=== PATIENT | male | born 1945 | race Caucasian/White ===

== ENCOUNTER 2018-01-08 08:59 | Emergency (ER) | payer OTHER ==
[~2018-01-08] VITALS: Ht 182.9 cm; Wt 94.0 kg
[2018-01-08 09:01] VITALS: BP 172/81; PULSE 50; RESP 16; TEMP 97.6; O2SAT 98
--- NOTE | 2018-01-08 09:40 | PD ---
HPI Chief Complaint: Head Injury Time Seen by Provider: 09:10 Travel History International Travel<30 days: No Contact w/Intl Traveler<30days: No Traveled to known affect area: No History of Present Illness HPI This is a 72 year old male who presents to the emergency department having had a fall 2 nights ago when he tripped over his dog and hit his head. He reports moderate severity pain in the back of his head and neck, constant, throbbing, with no associated loss of conciousness or vomiting. Given his pain has persisted he came to the emergency department. He takes a baby Aspirin every day and has a history of heart disease. He also drinks several alcoholic beverages every day. [facility] Past Medical History Narrative Medical Stents Coronary artery disease Drinks several alcoholic beverages a day Social History Alcohol Use: Yes (Drinks several alcoholic beverages a day) Tobacco Use: No Allergies-Medications (Allergen,Severity, Reaction): Coded Allergies: acetaminophen (Verified Allergy, Severe, VOMITING , 01/08/18) oxycodone (Verified Allergy, Severe, VOMITING , 01/08/18) Review of Systems Except as stated in HPI: all other systems reviewed are Neg Physical Exam Narrative GENERAL: SKIN: Abrasion over the right eye. HEAD: Atraumatic. Normocephalic. EYES: Pupils equal and round. No scleral icterus. No injection or drainage. ENT: No nasal bleeding or discharge. Mucous membranes pink and moist. NECK: Trachea midline. No JVD. CARDIOVASCULAR: Regular rate and rhythm. RESPIRATORY: No accessory muscle use. Clear to auscultation. Breath sounds equal bilaterally. GASTROINTESTINAL: Abdomen soft, non-tender, nondistended. MUSCULOSKELETAL: Extremities without clubbing, cyanosis, or edema. No obvious deformities. NEUROLOGICAL: Awake and alert. No obvious cranial nerve deficits. Moving all extremities. PSYCHIATRIC: Appropriate mood and affect; insight and judgment normal. Data Data Last Documented VS Vital Signs Date Time Temp Pulse Resp B/P (MAP) Pulse Ox O2 Delivery O2 Flow Rate FiO2 01/08/18 09:01 97.6 50 16 172/81 (111) [address] Brain W/O Iv Contrast(Rout) (01/08/18 ) Ct Cerv Spine W/O Contrast (01/08/18 ) MDM Medical Decision Making Medical Screen Exam Complete: Yes Emergency Medical Condition: Yes Interpretation(s) Afebrile, bradycardic, hypertensive CT head and cervical spine are reassuring Differential Diagnosis Intracranial hemorrhage, cervical spine fracture, concussion Narrative Course This is a 72-year-old male who presents to the emergency department having had a fall 2 nights ago with persistent headache and neck pain. CT of the head and cervical spine are reassuring. Patient will be discharged home. Diagnosis Primary Impression: Closed head injury Qualified Codes: S09.90XA - Unspecified injury of head, initial encounter Patient Instructions: General Instructions Additional Instructions: If you develop severe worsening headache, persistent vomiting, numbness, weakness, difficulty walking or difficulty talking return to the emergency department immediately. Med/Other Pt SpecificInfo: No Change to Meds Disposition: 01 DISCHARGE HOME Condition: Stable Nellie Martin MD January 08, 2018 09:40
--- NOTE | 2018-01-08 10:05 | RADRPT ---
EXAM DATE/TIME: 01/08/2018 09:44 [facility] COMPARISON: No previous studies available for comparison. INDICATIONS : Trauma fall two days ago. RADIATION DOSE: 41.08 CTDIvol (mGy) MEDICAL HISTORY : None SURGICAL HISTORY : None. ENCOUNTER: Initial ACUITY: 1 day PAIN SCALE: 5/10 LOCATION: Bilateral head TECHNIQUE: Multiple contiguous axial images were obtained of the head. Using automated exposure control and adj ustment of the mA and/or kV according to patient size, radiation dose was kept as low as reasonably a chievable to obtain optimal diagnostic quality images. DICOM format image data is available electro nically for review and comparison. FINDINGS: CEREBRUM: The ventricles are normal for age. No evidence of midline shift, mass lesion, hemorrhage or acute in farction. No extra-axial fluid collections are seen. POSTERIOR FOSSA: The cerebellum and brainstem are intact. The 4th ventricle is midline. The cerebellopontine angle i s unremarkable. EXTRACRANIAL: The visualized portion of the orbits is intact. SKULL: The calvaria is intact. No evidence of skull fracture. CONCLUSION: No acute disease. Truong Kahn MD on January 08, 2018 at 10:00 Board Certified Radiologist. This report was verified electronically.
--- NOTE | 2018-01-08 10:12 | RADRPT ---
EXAM DATE/TIME: 01/08/2018 09:44 [facility] COMPARISON: No previous studies available for comparison. INDICATIONS : Trauma fall two days ago. RADIATION DOSE: 18.40 CTDIvol (mGy) MEDICAL HISTORY : None SURGICAL HISTORY : None. ENCOUNTER: Initial ACUITY: 1 day PAIN SCALE: 6/10 LOCATION: Bilateral neck TECHNIQUE: Volumetric scanning of the cervical spine was performed. Multiplanar reconstructions in the sagittal, coronal and oblique axial planes were performed. Using automated exposure control and adjustment o f the mA and/or kV according to patient size, radiation dose was kept as low as reasonably achievable to obtain optimal diagnostic quality images. DICOM format image data is available electronically f or review and comparison. FINDINGS: VERTEBRAE: Normal vertebral body height. ALIGNMENT: No evidence of subluxation. C2-C3: The bony spinal canal is normal in size. No evidence of disc bulge or herniation. The neural forami na are bilaterally patent. C3-C4: The disc demonstrates decreased height. No significant impression on the thecal sac is seen. There is mild left uncovertebral hypertrophy. The bony spinal canal is normal in size. No evidence of disc b ulge or herniation. The neural foramina are bilaterally patent. C4-C5: The disc demonstrates decreased height. The bony spinal canal is normal in size. No evidence of disc bulge or herniation. There is mild bilateral facet hypertrophy. The neural foramina are bilaterally patent. C5-C6: The disc demonstrates decreased height. There is minimal bulging and osteophytic ridging without sign ificant stenosis. There is mild bilateral uncovertebral hypertrophy. The neural foramina are bilatera lly patent. C6-C7: The disc demonstrates decreased height. There is mild bulging and osteophytic ridging without signifi cant stenosis. There is mild bilateral uncovertebral hypertrophy. The neural foramina are bilaterally patent. C7-T1: The bony spinal canal is normal in size. No evidence of disc bulge or herniation. The neural forami na are bilaterally patent. CONCLUSION: 1. No acute bony abnormalities seen. 2. Degenerative change. Truong Kahn MD on January 08, 2018 at 10:05 Board Certified Radiologist. This report was verified electronically.
[2018-01-08 11:03] VITALS: BP 161/76
== END 2018-01-08 11:05 | disposition home or self-care (01) ==
LOC: NEPE 08:59
DX: S09.90XA Unspecified injury of head, initial encounter (principal); W01.0XXA Fall on same level from slipping, tripping and stumbling without subsequent striking against object, initial encounter; I25.10 Atherosclerotic heart disease of native coronary artery without angina pectoris; Z79.82 Long term (current) use of aspirin; Z88.5 Allergy status to narcotic agent
CPT/HCPCS: 70450; 72125